=== PATIENT | female | born 1985 | race Caucasian/White ===

== ENCOUNTER 2017-06-25 16:31 | Emergency (ER) | payer BC ==
[~2017-06-25] VITALS: Ht 165.1 cm; Wt 129.5 kg
[~2017-06-25 16:31] MED LIST: CYCL-1 PO
[2017-06-25 16:43] VITALS: BP 141/84
[2017-06-25 17:16] LABS: BASOPHILS % (AUTO) 0.5 % (0-1); EOSINOPHILS # (AUTO) 0.2 X10'3 (0-0.9); EOSINOPHILS % (AUTO) 2.2 % (0-6); HEMATOCRIT 39.8 % (35.0-45.0); HEMOGLOBIN 13.4 g/dl (12.0-16.0); LYMPHOCYTES # (AUTO) 2.8 X10'3 (1.1-4.8); LYMPHOCYTES % (AUTO) 31.4 % (21-51); MEAN CORPUSCULAR HEMOGLOBIN 26.4 PG (27.0-31.0); MEAN CORPUSCULAR HGB CONC 33.7 % (33.0-36.5); MEAN CORPUSCULAR VOLUME 78.4 FL (78-98); MEAN PLATELET VOLUME 8.4 FL (7.4-10.4); MONOCYTES # (AUTO) 0.4 X10'3 (0-0.9); NEUTROPHILS # (AUTO) 5.5 X10'3 (1.8-7.7); NEUTROPHILS % (AUTO) 60.9 % (42-75); PLATELET COUNT 246 X10'3 (140-440); RED BLOOD COUNT 5.08 X10'6 (4.20-5.60); RED CELL DISTRIBUTION WIDTH 15.1 % (11.5-14.5)
[2017-06-25 17:26] LABS: INR 1.1 INR; PARTIAL THROMBOPLASTIN TIME 28 SECONDS (22-32); PROTHROMBIN TIME 11.3 SECONDS (9.0-12.0)
[2017-06-25 17:31] LABS: ANION GAP 10 (8-16); BILIRUBIN,TOTAL 0.4 MG/DL (0.1-1.0); BLOOD UREA NITROGEN 20 MG/DL (7-18); BUN/CREATININE RATIO 28.2 (6.6-38.0); CALCIUM 9.4 MG/DL (8.5-10.1); CHLORIDE 108 MMOL/L (99-107); CREATININE 0.71 MG/DL (0.40-0.90); GLUCOSE 128 MG/DL (70-104); POTASSIUM 3.9 MMOL/L (3.5-5.1); SODIUM 145 MMOL/L (135-145); TOTAL CARBON DIOXIDE 27.3 MMOL/L (24-32); TOTAL PROTEIN 8.3 G/DL (6.4-8.2); eGFR > 90 ML/MIN
[2017-06-25 17:32] LABS: ALANINE AMINOTRANSFERASE 25 U/L (12-78); ALBUMIN/GLOBULIN RATIO 0.9 (1.1-1.5); ALKALINE PHOSPHATASE 101 IU/L (46-116); ASPARTATE AMINO TRANSFERASE 14 U/L (10-37)
== END 2017-06-25 18:18 | disposition home or self-care (01) ==
LOC: ER 16:33
DX: R07.89 Other chest pain (principal)
CPT/HCPCS: 36415; 71045; 80053; 84484; 85025; 85610; 85730; 93005; 99285

== ENCOUNTER 2018-05-06 10:29 | Emergency (ER) | payer BC ==
[~2018-05-06] VITALS: Ht 167.6 cm; Wt 125.0 kg
[2018-05-06] MEDS ORDERED: proCHLORperazine 10 MG/2 ml inj IM ONE (11:35)
[2018-05-06] MEDS ORDERED: SUMAtriptan succ. 6 MG/0.5ml vial SQ ONE (11:35)
[2018-05-06] MEDS ORDERED: ONDA8TAB6 PO (11:57)
[2018-05-06] MEDS ORDERED: SUMA100T PO (11:57)
[2018-05-06 12:45] VITALS: BP 133/68
== END 2018-05-06 13:02 | disposition home or self-care (01) ==
LOC: ER 10:30
DX: R51 Headache (principal); R11.2 Nausea with vomiting, unspecified; Z79.899 Other long term (current) drug therapy
CPT/HCPCS: 96372; 99284; J0780; J3030

== ENCOUNTER 2018-05-09 09:16 | Emergency (ER) | payer BC ==
[~2018-05-09] VITALS: Ht 167.6 cm; Wt 124.5 kg
[~2018-05-09 09:16] MED LIST changes: +ONDA8TAB6 PO; +SUMA100T PO
[2018-05-09 09:18] VITALS: BP 125/68
[2018-05-09] MEDS ORDERED: BENZ-16 PO (09:37)
[2018-05-09] MEDS ORDERED: benzonatate 100mg capsule PO ONE (09:40)
== END 2018-05-09 09:47 | disposition home or self-care (01) ==
LOC: ER 09:16
DX: J06.9 Acute upper respiratory infection, unspecified (principal)
CPT/HCPCS: 99283